=== PATIENT | female | born 1965 | race Caucasian/White ===

== ENCOUNTER 2017-04-13 17:12 | Emergency (ER) | payer BC ==
--- NOTE | ~2017-04-13 | CT101 ---
[facility]. [facility] A Service of [facility] RADIOLOGY TEXT RESULTS PATIENT: YOUSIF SEWELL LOCATION: [facility] : [birth year] UNIT #: [id number] AGE: [address]: PAUL JANI APRN SEX: F ORDER DR: [id number] [facility] [address] [place], [place] [address] [id number] E MR#: [id number] Acc #: [id number] NAME: YOUSIF SEWELL. : 1965 SEX: F STUDY DATE/TIME: 04/13/2017 18:32 UNIT: [facility] ROOM: STUDY DESCRIPTION: CT Maxillofacial Area Wo Cont Attending Physician: Paul Jain Aprn Ordering Physician: Mingo Su M.D. Primary Care Physician: Matt Chahal D.O. MEDICAL IMAGING REPORT This report is preliminary unless electronic signature is present EXAM CT maxillofacial area without contrast. HISTORY Fell today, laceration, pain to nose, upper lip pain, swelling, pain behind forehead. TECHNIQUE CT of the facial bones performed in the axial plane without contrast followed by coronal reconstructed images. This CT exam was performed with one or more of the following radiation dose reduction techniques: automatic exposure control, adjustment of mA and/or kV according to patient size, and iterative reconstruction. COMPARISON There is no previous. FINDINGS There are mildly comminuted bilateral nasal bone fractures as well as fracture at the anterior aspect of the nasal septum, such that overall the more distal fracture fragments are slightly displaced toward the left side. There is some overlying soft tissue swelling at the nose. There is probably also some buckling of the nasal septum more posteriorly with essentially minimally-displaced nasal septal fractures. The temporomandibular joints are located. There is no sinus air-fluid level. The paranasal sinuses show mild mucosal thickening. No orbital fracture is appreciated. The globes are intact. The lenses are located. The retrobulbar fat is well-maintained. IMPRESSION There are minimally comminuted, minimally-displaced bilateral nasal bone fractures as well as fracture of the nasal septum with some associated STS. [facility] A Service of [facility] RADIOLOGY TEXT RESULTS PATIENT: YOUSIF SEWELL LOCATION: [facility] : [birth year] UNIT #: [id number] AGE: [address]: PAUL JAIN APRN SEX: F ORDER DR: soft tissue swelling. No orbital fracture is seen. No sinus air-fluid level. Temporomandibular joints are located. Dictated by... Zoë De Luna M.D. THIS IS AN ELECTRONICALLY VERIFIED REPORT Zoë De Luna M.D. at 04/14/2017 10:09 PM MARIAJOSE/alida TD: 04/14/2017 15:07 JOB #: [id number] MEDICAL IMAGING REPORT Page 1 of 1 COPY
--- NOTE | ~2017-04-13 | CR173 ---
[facility] A Service of [facility] RADIOLOGY TEXT RESULTS PATIENT: YOUSIF SEWELL LOCATION: [facility] : [birth year] UNIT #: [id number] AGE: [address]: PAUL JAIN APRN SEX: F ORDER DR: [id number] [facility] [address] [place], [place] [address] [id number] E MR#: [id number] Acc #: [id number] NAME: YOUSIF SEWELL. : 1965 SEX: F STUDY DATE/TIME: 04/13/2017 18:46 UNIT: [facility] ROOM: STUDY DESCRIPTION: CR Knee 3 Views Rt Attending Physician: Paul Jain Aprn Ordering Physician: Ed Kip Su M.D. Primary Care Physician: Matt Chahal D.O. MEDICAL IMAGING REPORT This report is preliminary unless electronic signature is present EXAM Right knee, 3 views, 04/13/2017. HISTORY Right knee pain and swelling status post fall today. Twisted and tangled in dog leash then fell today. FINDINGS AP and lateral projection of the knee shows smooth articular anatomy without indication of fracture or dislocation at the major weight-bearing surface of the knee. There is no indication of radiopaque foreign body about the knee surface or joint effusion. IMPRESSION Normal knee. Dictated by... Josef Castrejon M.D. THIS IS AN ELECTRONICALLY VERIFIED REPORT Josef Castrejon M.D. at 04/15/2017 6:19 AM ARNOLD/alida TD: 04/14/2017 14:08 JOB #: [id number] MEDICAL IMAGING REPORT Page 1 of 1 COPY
--- NOTE | ~2017-04-13 | CR172 ---
[facility] A Service of [facility] RADIOLOGY TEXT RESULTS PATIENT: YOUSIF SEWELL LOCATION: [facility] : [birth year] UNIT #: [id number] AGE: [address]: PAUL JAIN APRN SEX: F ORDER DR: [id number] [facility] [address] [place], [place] [address] [id number] E MR#: [id number] Acc #: [id number] NAME: YOUSIF SEWELL. : 1965 SEX: F STUDY DATE/TIME: 04/13/2017 18:45 UNIT: [facility] ROOM: STUDY DESCRIPTION: CR Knee 3 Views Lt Attending Physician: Paul Jain Aprn Ordering Physician: Ed Kip Su M.D. Primary Care Physician: Matt Chahal D.O. MEDICAL IMAGING REPORT This report is preliminary unless electronic signature is present EXAM Left knee, 3 views, 04/13/2017. HISTORY Left knee pain and swelling. Twisted and skinned left knee, tangled in dog least today then fell. FINDINGS AP and lateral projection of the knee shows smooth articular anatomy without indication of fracture or dislocation at the major weight-bearing surface of the knee. There is no indication of radiopaque foreign body about the knee surface or joint effusion. IMPRESSION Normal knee. Dictated by... Josef Castrejon M.D. THIS IS AN ELECTRONICALLY VERIFIED REPORT Josef Castrejon M.D. at 04/15/2017 6:19 AM ARNOLD/alida TD: 04/14/2017 14:05 JOB #: [id number] MEDICAL IMAGING REPORT Page 1 of 1 COPY
[~2017-04-13 17:12] MED LIST: PROZAC PO; VOLTAREN75 MG PO
== END 2017-04-13 21:42 | disposition home or self-care (01) ==
LOC: CFTX 17:12 → CED 17:12 → CFTX 19:02
DX: S01.21XA Laceration without foreign body of nose, initial encounter (principal); S01.511A Laceration without foreign body of lip, initial encounter; S80.02XA Contusion of left knee, initial encounter; S80.01XA Contusion of right knee, initial encounter; Z88.5 Allergy status to narcotic agent; Z23 Encounter for immunization; W22.8XXA Striking against or struck by other objects, initial encounter; Y92.410 Unspecified street and highway as the place of occurrence of the external cause
CPT/HCPCS: 12011; 70486; 73562; 90471; 90715; 99283